=== PATIENT | male | born 1955 | race Caucasian/White ===

== ENCOUNTER 2018-05-07 14:53 | Inpatient (IN) | payer BC ==
[~2018-05-07] VITALS: Ht 193 cm; Wt 88.0 kg
[2018-05-07 14:56] VITALS: BP 124/75; PULSE 151; TEMP 97.4; O2SAT 98
--- NOTE | 2018-05-07 15:12 | PD ---
HPI Chief Complaint: Cardiac Complaint Time Seen by Provider: 15:01 Travel History International Travel<30 days: No Contact w/Intl Traveler<30days: No Traveled to known affect area: No History of Present Illness HPI 62 y/o male presents with short of breath and feeling tired. He denies prior history of atrial fibrillation. He denies any other concurrent complaints. He states his symptoms started yesterday. Quality is weak. Severity is all over. He states he feels worse when he moves around. Duration is one day. [facility] Past Medical History Hypertension: Yes ?: Not Past Surgical History Surgical History: No Previous Surgery Social History Alcohol Use: Yes (HEAVY DRINKER DAILY) Tobacco Use: No Substance Use: No Allergies-Medications (Allergen,Severity, Reaction): Coded Allergies: No Known Allergies (Unverified , 05/07/18) Reported Meds & Prescriptions Reported Meds & Active Scripts Active Reported Hydrochlorothiazide 25 Mg Tab 25 Mg PO DAILY Acyclovir 200 Mg Cap 250 Mg PO BID Review of Systems Except as stated in HPI: all other systems reviewed are Neg Physical Exam Narrative GENERAL: 62 y/o male in no apparent distress SKIN: Focused skin assessment warm/dry. HEAD: Atraumatic. Normocephalic. EYES: Pupils equal and round. No scleral icterus. No injection or drainage. ENT: No nasal bleeding or discharge. Mucous membranes pink and moist. NECK: Trachea midline. No JVD. CARDIOVASCULAR: irregular rate and rhythm. No murmur appreciated. RESPIRATORY: No accessory muscle use. Clear to auscultation. Breath sounds equal bilaterally. GASTROINTESTINAL: Abdomen soft, non-tender, nondistended. MUSCULOSKELETAL: No obvious deformities. No clubbing. No cyanosis. NEUROLOGICAL: Awake and alert. No obvious cranial nerve deficits. Motor grossly within normal limits. Normal speech. PSYCHIATRIC: Appropriate mood and affect; insight and judgment normal. Data Data Last Documented VS Vital Signs Date Time Temp Pulse Resp B/P (MAP) Pulse Ox O2 Delivery O2 Flow Rate FiO2 05/07/18 16:20 89 20 112/62 (79) 99 Nasal Cannula 2.00 05/07/18 14:56 97.4 Orders Orders Magnesium (Mg) (05/07/18 15:05) Phosphorus (Po4) (05/07/18 15:05) Complete Blood Count With Diff (05/07/18 15:05) Comprehensive Metabolic Panel (05/07/18 15:05) Ckmb (Isoenzyme) Profile (05/07/18 15:05) Troponin I (05/07/18 15:05) Act Partial Throm Time (Ptt) (05/07/18 15:05) Prothrombin Time / Inr (Pt) (05/07/18 15:05) Chest, Single Ap (05/07/18 ) Electrocardiogram (05/07/18 ) Iv Access Insert/Monitor (05/07/18 15:05) Ecg Monitoring (05/07/18 15:05) Oximetry (05/07/18 15:05) B-Type Natriuretic Peptide (05/07/18 15:05) Esmolol Drip Inj Premix (Brevibloc Drip (05/07/18 15:15) Electrocardiogram (05/07/18 13:54) Admit Order (Ed Use Only) (05/07/18 17:04) Labs Laboratory Tests Test 05/07/18 15:16 White Blood Count 8.1 TH/MM3 Red Blood Count 4.64 MIL/MM3 Hemoglobin 16.3 GM/DL Hematocrit 45.6 % Mean Corpuscular Volume 98.2 FL Mean Corpuscular Hemoglobin 35.1 PG Mean Corpuscular Hemoglobin Concent 35.7 % Red Cell Distribution Width 14.0 % Platelet Count 165 TH/MM3 Mean Platelet Volume 7.7 FL Neutrophils (%) (Auto) 72.0 % Lymphocytes (%) (Auto) 15.5 % Monocytes (%) (Auto) 11.4 % Eosinophils (%) (Auto) 0.7 % Basophils (%) (Auto) 0.4 % Neutrophils # (Auto) 5.8 TH/MM3 Lymphocytes # (Auto) 1.2 TH/MM3 Monocytes # (Auto) 0.9 TH/MM3 Eosinophils # (Auto) 0.1 TH/MM3 Basophils # (Auto) 0.0 TH/MM3 CBC Comment DIFF FINAL Differential Comment Prothrombin Time 10.0 SEC Prothromb Time International Ratio 1.0 RATIO Activated Partial Thromboplast Time 27.5 SEC Blood Urea Nitrogen 16 MG/DL Creatinine 1.09 MG/DL Random Glucose 120 MG/DL Total Protein 7.6 GM/DL Albumin 4.5 GM/DL Calcium Level 9.1 MG/DL Phosphorus Level 2.8 MG/DL Magnesium Level 2.1 MG/DL Alkaline Phosphatase 47 U/L Aspartate Amino Transf (AST/SGOT) 18 U/L Alanine Aminotransferase (ALT/SGPT) 35 U/L Total Bilirubin 1.3 MG/DL Sodium Level 137 MEQ/L Potassium Level 3.4 MEQ/L Chloride Level 100 MEQ/L Carbon Dioxide Level 26.2 MEQ/L Anion Gap 11 MEQ/L Estimat Glomerular Filtration Rate 69 ML/MIN Total Creatine Kinase 70 U/L Troponin I LESS THAN 0.02 NG/ML MDM Medical Decision Making Medical Screen Exam Complete: Yes Emergency Medical Condition: Yes Medical Record Reviewed: Yes (pmh confirmed) Interpretation(s) CBC & BMP Diagram 05/07/18 15:16 Total Protein 7.6, Albumin 4.5, Calcium Level 9.1, Phosphorus Level 2.8, Magnesium Level 2.1, Alkaline Phosphatase 47, Aspartate Amino Transf (AST/SGOT) 18, Alanine Aminotransferase (ALT/SGPT) 35, Total Bilirubin 1.3 H Last 24 hours Impressions Chest X-Ray 05/07/18 0000 Signed Impressions: CONCLUSION: 1. No focal infiltrate or pulmonary vascular congestion. 2. Elevation of the right hemidiaphragm. Differential Diagnosis A. fib with RVR, SVT, anemia, renal failure, electrolyte abnormality Narrative Course We will check blood work, chest x-ray and placed on esmolol drip and reevaluate. 1515 patient now in sinus rhythm, will turn off esmolol and admit for further care Critical Care Narrative Aggregate critical care time was 31 minutes. Time to perform other separately billable procedures was not included in the critical care time. My time did not include minutes spent treating any other patients simultaneously or on activities that did not directly contribute to the patient's treatment. The services I provided to this patient were to treat and/or prevent clinically significant deterioration that could result in: Worsening tachycardia, hypotension, I provided critical care services requiring my management, as noted below: Chart data review, documentation time, medication orders and management, vital sign assessments/reviewing monitor data, ordering and reviewing lab tests, ordering and interpreting/reviewing x-rays and diagnostic studies, care of the patient and discussion of the patient with the admitting physicians. Physician Communication Physician Communication dr grullon agrees to admit Diagnosis Primary Impression: New onset a-fib Admitting Information Admitting Physician Requests: Admit Stacy Deutsch MD May 07, 2018 15:12
[2018-05-07] MEDS ORDERED: ESMOLOL DRIP INJ PREMIX 250 ML IV PRN (15:15)
[2018-05-07 15:34] LABS: AUTOMATED NEUTROPHIL # 5.8 TH/MM3 (1.8-7.7); BASOPHIL % 0.4 % (0.0-2.0); EOSINOPHIL # 0.1 TH/MM3 (0-0.4); EOSINOPHIL % 0.7 % (0.0-4.0); HEMATOCRIT 45.6 % (39.0-51.0); HEMOGLOBIN 16.3 GM/DL (13.0-17.0); LYMPH % 15.5 % (9.0-44.0); LYMPHOCYTE # 1.2 TH/MM3 (1.0-4.8); MEAN CELL VOLUME 98.2 FL (80.0-100.0); MEAN CORPUSCULAR HEMOGLOBIN 35.1 PG (27.0-34.0); MEAN CORPUSCULAR HGB CONC 35.7 % (32.0-36.0); MEAN PLATELET VOLUME 7.7 FL (7.0-11.0); MONO % 11.4 % (0.0-8.0); MONOCYTE # 0.9 TH/MM3 (0-0.9); PLATELET COUNT 165 TH/MM3 (150-450); RED BLOOD COUNT 4.64 MIL/MM3 (4.50-5.90); WHITE BLOOD COUNT 8.1 TH/MM3 (4.0-11.0)
[2018-05-07 15:55] VITALS: BP 110/81; PULSE 129; RESP 15; O2SAT 91
[2018-05-07 15:58] LABS: ALBUMIN 4.5 GM/DL (3.4-5.0); ALT (GPT) 35 U/L (12-78); AST (GOT) 18 U/L (15-37); BICARBONATE 26.2 MEQ/L (21.0-32.0); BLOOD UREA NITROGEN 16 MG/DL (7-18); CALCIUM 9.1 MG/DL (8.5-10.1); CHLORIDE 100 MEQ/L (98-107); CREATININE 1.09 MG/DL (0.60-1.30); GLOMERULAR FILTRATION RATE 69 ML/MIN (>89); GLUCOSE,RANDOM 120 MG/DL (74-106); MAGNESIUM 2.1 MG/DL (1.5-2.5); PHOSPHORUS 2.8 MG/DL (2.5-4.9); SODIUM (NA) 137 MEQ/L (136-145)
[2018-05-07] MEDS ORDERED: HYDR25TA5 PO (15:58)
[2018-05-07] MEDS ORDERED: ACYC200C66 PO (15:58)
[2018-05-07 16:02] LABS: ALKALINE PHOSPHATASE 47 U/L (45-117); TOTAL BILIRUBIN ADULT 1.3 MG/DL (0.2-1.0); TOTAL PROTEIN 7.6 GM/DL (6.4-8.2); TROPONIN I LESS THAN 0.02 NG/ML (0.02-0.05)
--- NOTE | 2018-05-07 16:07 | RADRPT ---
EXAM DATE: 05/07/2018 3:59 PM EDT AGE/SEX: 62 years / Male INDICATIONS: Short of breath. CLINICAL DATA: This is the patient's initial encounter. Patient reports that signs and symptoms have been present for 1 day and indicates a pain score of 1/10. MEDICAL/SURGICAL HISTORY: None. None. COMPARISON: No prior exams available for comparison. FINDINGS: There is elevation of the right hemidiaphragm. The heart is stable. The pulmonary vascular pattern is normal. The lungs are clear. Degenerative changes are noted throughout the thoracic spine. CONCLUSION: 1. No focal infiltrate or pulmonary vascular congestion. 2. Elevation of the right hemidiaphragm. Electronically signed by: Nelson Caal MD 05/07/2018 4:04 PM EDT
[2018-05-07 16:20] VITALS: BP 112/62; PULSE 89; RESP 20; O2SAT 99
[2018-05-07] MEDS ORDERED: POTASSIUM CHLORIDE 10 MEQ CONTROLLED RELEASE TAB PO ONE (17:30)
[2018-05-07] MEDS ORDERED: VALS1TAB70 PO (17:33)
--- NOTE | 2018-05-07 18:12 | HHI.HP ---
[facility] Service [facility] Primary Care Physician Alex Rosenberg MD Admission Diagnosis afib with rvr Diagnoses: (1) New onset a-fib Diagnosis: Principal (2) Alcohol dependence Diagnosis: Principal (3) Hypokalemia Diagnosis: Principal Chief Complaint: palpitations, lightheaded ness- new onset a fib Travel History International Travel<30 Days: No Contact w/Intl Traveler <30 Da: No Traveled to Known Affected Are: No History of Present Illness Patient is a 62-year-old male with known history of hypertension on valsartan 320 mg daily, hydrochlorothiazide 25 mg daily who woke up around 10 AM this morning went to work, patient works in the [employer] in [employer] and suddenly felt lightheaded and short of breath with palpitations and sweating. Patient denies any chest pains. Persistence prompted consult to ER where on evaluation was noted to be in rapid A. fib. Patient was started on esmolol drip and converted to sinus rhythm. Patient denies any fever chills cough denies any recent travel. Very active lifestyle. Patient states both parents have history of heart disease. Mother has history of atrial fibrillation. Patient with history of herpes infection on suppression therapy with Acyclovir twice a day. Patient denies any paroxysmal nocturnal dyspnea orthopnea or leg swelling. On further questioning patient states that this happened to him about 5 years ago and was then sent to [facility] where he followed every 3 years and was discharged. Patient is on no anticoagulation. When asked about this patient at one point was told that he might need Coumadin but patient is reluctant. Review of Systems Constitutional: DENIES: Fever, Weight loss, Chills, Change in appetite Eyes: DENIES: Blurred vision, Double Vision Ears, nose, mouth, throat: DENIES: Tinnitus, Ear Pain, Epistaxis, Odynophagia Respiratory: DENIES: Cough, Hemoptysis, Sputum production, Shortness of breath Cardiovascular: DENIES: Chest pain, Palpitations, Dyspnea on Exertion, Lower Extremity Edema, Orthopnea Gastrointestinal: DENIES: Black stools, Bloody stools, Difficulty Swallowing, Anorexia Genitourinary: DENIES: Urgency, Hematuria, Penile Discharge Musculoskeletal: DENIES: Joint pain, Stiffness Integumentary: DENIES: Pruritus Hematologic/lymphatic: DENIES: Bruising Immunologic/allergic: DENIES: Urticaria Neurologic: DENIES: Headache, Speech Problems, Tremor Psychiatric: DENIES: Suicidal Ideation, Homicidal Ideation Past Family Social History Past Medical History Hypertension On chronic herpes infection suppression therapy Past Surgical History No major surgeries Reported Medications Hydrochlorothiazide 25 mg daily Valsartan 320 mg daily Famciclovir 200 mg twice a day Allergies: Coded Allergies: No Known Allergies (Unverified , 05/07/18) Family History Both parents have heart disease Mother has history of atrial fibrillation Social History Denies any smoking or IV drug use. Admits to drinking alcohol a daily basis for at least shots of whiskey every night for bottle of wine daily Physical Exam Vital Signs Vital Signs Date Time Temp Pulse Resp B/P (MAP) Pulse Ox O2 Delivery O2 Flow Rate FiO2 05/07/18 16:20 89 20 112/62 (79) 99 Nasal Cannula 2.00 05/07/18 15:56 114 110/81 05/07/18 15:55 129 15 110/81 (91) 91 Nasal Cannula 2.00 05/07/18 15:43 138 126/66 05/07/18 15:26 158 120/71 05/07/18 14:56 97.4 151 124/75 (91) 98 Physical Exam GENERAL: This is a well-nourished, well-developed patient, in no apparent distress. SKIN: No rashes, ecchymoses or lesions. Cool and dry. HEAD: Atraumatic. Normocephalic. No temporal or scalp tenderness. EYES: Pupils equal round and reactive. Extraocular motions intact. No scleral icterus. No injection or drainage. ENT: Nose without bleeding, purulent drainage or septal hematoma. Throat without erythema, tonsillar hypertrophy or exudate. Uvula midline. Airway patent. NECK: Trachea midline. No JVD or lymphadenopathy. Supple, nontender, no meningeal signs. CARDIOVASCULAR: Regular rate and rhythm without murmurs, gallops, or rubs. RESPIRATORY: Clear to auscultation. Breath sounds equal bilaterally. No wheezes , rales, or rhonchi. GASTROINTESTINAL: Abdomen soft, non-tender, nondistended. No hepato-splenomegaly , or palpable masses. No guarding. MUSCULOSKELETAL: Extremities without clubbing, cyanosis, or edema. No joint tenderness, effusion, or edema noted. No calf tenderness. Negative Homans sign bilaterally. NEUROLOGICAL: Awake and alert. Cranial nerves II through XII intact. Motor and sensory grossly within normal limits. Five out of 5 muscle strength in all muscle groups. Normal speech. Laboratory Laboratory Tests Test 05/07/18 15:16 White Blood Count 8.1 Red Blood Count 4.64 Hemoglobin 16.3 Hematocrit 45.6 Mean Corpuscular Volume 98.2 Mean Corpuscular Hemoglobin 35.1 Mean Corpuscular Hemoglobin Concent 35.7 Red Cell Distribution Width 14.0 Platelet Count 165 Mean Platelet Volume 7.7 Neutrophils (%) (Auto) 72.0 Lymphocytes (%) (Auto) 15.5 Monocytes (%) (Auto) 11.4 Eosinophils (%) (Auto) 0.7 Basophils (%) (Auto) 0.4 Neutrophils # (Auto) 5.8 Lymphocytes # (Auto) 1.2 Monocytes # (Auto) 0.9 Eosinophils # (Auto) 0.1 Basophils # (Auto) 0.0 CBC Comment DIFF FINAL Differential Comment Prothrombin Time 10.0 Prothromb Time International Ratio 1.0 Activated Partial Thromboplast Time 27.5 Blood Urea Nitrogen 16 Creatinine 1.09 Random Glucose 120 Total Protein 7.6 Albumin 4.5 Calcium Level 9.1 Phosphorus Level 2.8 Magnesium Level 2.1 Alkaline Phosphatase 47 Aspartate Amino Transf (AST/SGOT) 18 Alanine Aminotransferase (ALT/SGPT) 35 Total Bilirubin 1.3 Sodium Level 137 Potassium Level 3.4 Chloride Level 100 Carbon Dioxide Level 26.2 Anion Gap 11 Estimat Glomerular Filtration Rate 69 Total Creatine Kinase 70 Troponin I LESS THAN 0.02 Result Diagram: 05/07/18 1516 05/07/18 1516 Imaging Last Impressions Chest X-Ray 05/07/18 0000 Signed Impressions: CONCLUSION: 1. No focal infiltrate or pulmonary vascular congestion. 2. Elevation of the right hemidiaphragm. Caprini VTE Risk Assessment Caprini Risk Assessment Model Point Value = 1 Point Value = 2 Point Value = 3 Point Value = 5 Age 41-60 Minor surgery BMI > 25 kg/m2 Swollen legs Varicose veins or History of unexplained or recurrent spontaneous Oral contraceptives or hormone replacement Sepsis (< 1 month) Serious lung disease, including pneumonia (< 1 month) Abnormal pulmonary function Acute myocardial infarction Congestive heart failure (< 1 month) History of inflammatory bowel disease Medical patient at bed rest Age 61-74 Arthroscopic surgery Major open surgery (> 45 min) Laparoscopic surgery (> 45 min) Malignancy Confined to bed (> 72 hours) Immobilizing plaster cast Central venous access Age >= 75 History of VTE Family history of VTE Factor V Leiden Prothrombin [id number] Lupus anticoagulant Anticardiolipin antibodies Elevated serum homocysteine Heparin-induced thrombocytopenia Other congenital or acquired thrombophilia Stroke (< 1 month) Elective arthroplasty Hip, pelvis, or leg fracture Acute spinal cord injury (< 1 month) Prophylaxis Regimen Total Risk Factor Score Risk Level Prophylaxis Regimen 0-1 Low Early ambulation 2 Moderate Order ONE of the following: *Sequential Compression Device (SCD) *Heparin 5000 units SQ BID 3-4 Higher Order ONE of the following medications: *Heparin 5000 units SQ TID *Enoxaparin/Lovenox 40 mg SQ daily (WT < 150 kg, CrCl > 30 mL/min) *Enoxaparin/Lovenox 30 mg SQ daily (WT < 150 kg, CrCl > 10-29 mL/min) *Enoxaparin/Lovenox 30 mg SQ BID (WT < 150 kg, CrCl > 30 mL/min) AND/OR *Sequential Compression Device (SCD) 5 or more Highest Order ONE of the following medications: *Heparin 5000 units SQ TID (Preferred with Epidurals) *Enoxaparin/Lovenox 40 mg SQ daily (WT < 150 kg, CrCl > 30 mL/min) *Enoxaparin/Lovenox 30 mg SQ daily (WT < 150 kg, CrCl > 10-29 mL/min) *Enoxaparin/Lovenox 30 mg SQ BID (WT < 150 kg, CrCl > 30 mL/min) AND *Sequential Compression Device (SCD) Assessment and Plan Assessment and Plan 62-year-old male presenting with lightheadedness palpitations sweating and on admission was found to be in Atrial fibrillation new onset in RVR. -Chads score 2- now in SR History of hypertension patient converted to sinus with esmolol drip now off it. Will start patient on po BB- Toprol XL 12.5 mg daily. Start aspirin. Discussed about newer oral anticoagulants patient is appears reluctant at this time- heard about "Coumadin". Will get cardiology consult for recommendation Get an echo. Get TSH Counseled on alcohol cessation. Continue on Valsartan- decrease dose to 160 mg with addition of BB (home dose was 320 mg daily) Hypokalemia. We will give p.o. potassium 30 meq po Recheck BMP in a.m. Chronic alcohol use. Patient admits to drinking heavily on a daily basis. Will place patient on CIWA protocol. History of chronic herpes infection on suppression therapy. continue Acyclovir Lovenox - DVT prophylaxis dose Physician Certification 2 Midnight Certification Type: Admission for Inpatient Services Order for Inpatient Services The services are ordered in accordance with Medicare regulations or non- Medicare payer requirements, as applicable. In the case of services not specified as inpatient-only, they are appropriately provided as inpatient services in accordance with the 2-midnight benchmark. Estimated LOS (days): 3 days is the estimated time the patient will need to remain in the hospital, assuming treatment plan goals are met and no additional complications. Post-Hospital Plan: Home Martha Moeller MD May 07, 2018 18:12
[2018-05-07] MEDS ORDERED: FLUMAZENIL 0.5 MG/5 ML VIAL IV PUSH PRN (18:15)
[2018-05-07] MEDS ORDERED: LORazepam 2 MG/ML VIAL IV PUSH PRN ×4 (18:15)
[2018-05-07] MEDS ORDERED: LORazepam 2 MG TAB PO PRN (18:15)
[2018-05-07] MEDS ORDERED: LORazepam 1 MG TAB PO PRN (18:15)
[2018-05-07] MEDS ORDERED: PILL SPLITTER OTHER PRN (19:00)
[2018-05-07 19:08] VITALS: BP 129/60; PULSE 92; RESP 20; TEMP 98.3; O2SAT 97
[2018-05-07] MEDS: ASPIRIN EC 325 MG TABEC PO SCH (19:13)
[2018-05-07] MEDS: METOPROLOL SUCCINATE 25 MG EXTENDED RELEASE TAB PO SCH (19:14)
[2018-05-07] MEDS: ACYCLOVIR 200 MG CAP PO SCH (19:54)
[2018-05-07] MEDS ORDERED: ENOXAPARIN SODIUM 30 MG/0.3 ML SYRINGE SQ SCH (20:00)
[2018-05-07] MEDS ORDERED: ACYCLOVIR 200 MG CAP PO SCH (21:00)
[2018-05-07 22:59] VITALS: PULSE 76
[2018-05-07 23:00] VITALS: BP 131/86; PULSE 71; RESP 20; TEMP 98.1; O2SAT 96
[2018-05-08] VITALS (18 sets, daily range): BP systolic 121–144; BP diastolic 78–80; PULSE 58–88; RESP 18–22; TEMP 97.4–98.1; O2SAT 97–98
[2018-05-08] MEDS ORDERED: MULTIVITAMINS/MINERALS THERAPEUTIC TAB PO SCH (09:00)
[2018-05-08] MEDS: ACYCLOVIR 200 MG CAP PO SCH (09:00)
[2018-05-08] MEDS ORDERED: VALSARTAN 160 MG TAB PO SCH (09:00)
[2018-05-08] MEDS ORDERED: FOLIC ACID 1 MG TAB PO SCH (09:00)
[2018-05-08] MEDS ORDERED: THIAMINE HCL 100 MG TAB PO SCH (09:00)
[2018-05-08] MEDS: ASPIRIN EC 325 MG TABEC PO SCH (09:11)
[2018-05-08] MEDS: METOPROLOL SUCCINATE 25 MG EXTENDED RELEASE TAB PO SCH (09:12)
[2018-05-08 11:43] LABS: BICARBONATE 28.4 MEQ/L (21.0-32.0); CALCIUM 8.9 MG/DL (8.5-10.1); CREATININE 0.9 MG/DL (0.60-1.30)
[2018-05-08] MEDS ORDERED: ASPI81 CHEW (12:49)
[2018-05-08] MEDS ORDERED: METO1TAB42 PO (12:49)
--- NOTE | 2018-05-08 12:53 | MB ---
cc: Ken Bowen DO DATE: 05/08/2018 REASON FOR CONSULTATION: New onset atrial fibrillation. HISTORY OF PRESENT ILLNESS: Christian Romero is a pleasant 62-year-old male who presented to [facility] Emergency Room on 05/07/2018 due to lightheadedness, palpitations and diaphoresis. He states that he woke up in the morning and was not feeling well, somewhat lightheaded, as well as palpitations. He decided to go to work and while at work he started getting diaphoretic and just felt that he needed to come into the emergency room. While at work, he started getting diaphoretic and so he attempted to call his primary care physician, but his primary physician was off and so he was told to come to the Emergency Room. On arrival, he was found to be in atrial fibrillation with rapid ventricular response and was started on an esmolol drip, but then converted to sinus rhythm. Since that time, he has been in sinus rhythm. In talking to him, he states that he has had no chest pain. He no longer has palpitations or diaphoresis. Overall, he feels well, has been up and moving and walking. 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 They wanted to do a colonoscopy and so after taking the prep, he was getting ready for his colonoscopy at the hospital and he was found to have tachycardia. He was never told that this was atrial fibrillation and apparently they just had him drink some water feeling that he got dehydrated and his heart rate returned to normal, so this may have been sinus tachycardia. He did bring up about Coumadin as both his parents had atrial fibrillation, but otherwise anticoagulation was never mentioned to him, so I do not believe that this was probably atrial fibrillation at that time, although it is tough to tell. This episode, he said, happened somewhere around 5-8 years ago. PAST MEDICAL HISTORY: 1. Hypertension. 2. Chronic herpes infection. PAST SURGICAL HISTORY: Denies. ALLERGIES: NO KNOWN DRUG ALLERGIES. MEDICATIONS: 1. Acyclovir 250 mg b.i.d. 2. Valsartan 320 mg daily. 3. Hydrochlorothiazide 25 mg daily. FAMILY HISTORY: Both parents had heart disease as well as atrial fibrillation. SOCIAL HISTORY: The patient denies tobacco or drug abuse. He admits to drinking on a daily basis usually a bottle of wine and a couple shots of whiskey. He states that he does not enjoy the alcohol, but feels he has nothing else to do and so usually has a drink or 2. REVIEW OF SYSTEMS: Fourteen systems are reviewed including osteopathic. Pertinent positives and negatives as above, otherwise negative. PHYSICAL EXAMINATION: VITAL SIGNS: Temperature 97.4, heart rate 88, blood pressure 144/78, respirations 20, pulse oximetry 98% on room air. GENERAL: The patient appears well in no acute distress. Alert, awake and oriented x 3. HEENT: Extraocular muscles intact. Mucous membranes moist. NECK: Supple. No JVD at 45 degrees. No carotid bruits heard bilaterally. Carotid upstroke is brisk in nature. HEART: Regular rate and rhythm. Positive first and second heart sounds with no noted murmurs, gallops or rubs. LUNGS: Clear to auscultation bilaterally. No wheezes, rales or rhonchi. ABDOMEN: Soft, nontender, nondistended. No organomegaly noted. EXTREMITIES: Show no clubbing, cyanosis or edema. Femoral and distal pulses intact bilaterally. NEUROLOGIC: No focal deficits. SKIN: Warm, dry and intact. OSTEOPATHIC: No kyphoscoliosis, lordosis or paraspinal tender points. LABORATORY DATA: Hemoglobin 16.3, hematocrit 45.6, platelets 165. Potassium 3.6, BUN 16, creatinine 0.9. Troponin less than 0.02. BNP 34. TSH 1.64. Electrocardiogram (05/07/2018 at 1354): Atrial fibrillation with rapid ventricular response, nonspecific ST-T wave changes. Electrocardiogram (05/07/2018 at 1517): Sinus rhythm with no acute ST-T wave changes. IMPRESSIONS: 1. New onset atrial fibrillation with rapid ventricular response, since it is converted to normal sinus rhythm, CHADS-VASc score equals 1. 2. History of hypertension. 3. Chronic alcohol use. 4. Previous tachyarrhythmia a number of years ago, which possibly could have been sinus tachycardia due to dehydration. RECOMMENDATIONS: 1. Mr. Romero presented with atrial fibrillation and has since converted to sinus rhythm. 2. We will plan on placing him on low-dose metoprolol tartrate to help try to keep him out of atrial fibrillation, but also if he does go into atrial fibrillation, this will help to control his heart rate. 3. He has a CHADS-VASc score of 1 (hypertension) and so he will be placed on aspirin 81 mg daily for anticoagulant. 4. We will check a 2-D echo and if no complications, he will be discharged home later today. 5. He will continue on his current medications for blood pressure therapy. 6. We talked about his alcohol use as this may potentiate his atrial fibrillation and he states that he does it more out of boredom and so he has no problem decreasing this. 7. He does have a slightly larger neck, but does not have daytime somnolence or snoring, but consideration of possible outpatient obstructive sleep apnea would be reasonable as a possible potentiating factor for his atrial fibrillation. 8. He will followup in the office with me or up at [place]. Thank you for allowing me to see Christian Romero. If there are any questions, please do not hesitate to call. Ken Bowen, VGP/DL , 12:06 PM , 12:52 PM
--- NOTE | 2018-05-08 12:53 | HHI.DS ---
Discharge Summary Admission Date May 07, 2018 at 17:05 Discharge Date: May 08, 2018 Admitting Diagnosis afib with rvr (1) New onset a-fib ICD Code: I48.91 - Unspecified atrial fibrillation Diagnosis: Principal Status: Acute (2) Alcohol dependence ICD Code: F10.20 - Alcohol dependence, uncomplicated Diagnosis: Principal (3) Hypokalemia ICD Code: E87.6 - Hypokalemia Diagnosis: Principal Procedures Echo Brief History - From Admission Patient is a 62-year-old male with known history of hypertension on valsartan 320 mg daily, hydrochlorothiazide 25 mg daily who woke up around 10 AM this morning went to work, patient works in the [employer] in [facility] and suddenly felt lightheaded and short of breath with palpitations and sweating. Patient denies any chest pains. Persistence prompted consult to ER where on evaluation was noted to be in rapid A. fib. Patient was started on esmolol drip and converted to sinus rhythm. Patient denies any fever chills cough denies any recent travel. Very active lifestyle. Patient states both parents have history of heart disease. Mother has history of atrial fibrillation. Patient with history of herpes infection on suppression therapy with Acyclovir twice a day. Patient denies any paroxysmal nocturnal dyspnea orthopnea or leg swelling. On further questioning patient states that this happened to him about 5 years ago and was then sent to [facility] where he followed every 3 years and was discharged. Patient is on no anticoagulation. When asked about this patient at one point was told that he might need Coumadin but patient is reluctant. CBC/BMP: 05/07/18 1516 05/08/18 1113 Significant Findings Laboratory Tests Test 05/07/18 15:16 05/08/18 11:13 Mean Corpuscular Hemoglobin 35.1 PG (27.0-34.0) Neutrophils (%) (Auto) 72.0 % (16.0-70.0) Monocytes (%) (Auto) 11.4 % (0.0-8.0) Random Glucose 120 MG/DL (74-106) 117 MG/DL (74-106) Total Bilirubin 1.3 MG/DL (0.2-1.0) Potassium Level 3.4 MEQ/L (3.5-5.1) Estimat Glomerular Filtration Rate 69 ML/MIN (>89) 86 ML/MIN (>89) Troponin I LESS THAN 0.02 NG/ML Hospital Course Mr. Romero is a 62-year-old male. He was admitted secondary to A. fib RVR. He may have had a previous cardiac arrhythmia between 5 and 10 years ago after having a GI procedure. He cannot recall doing anything specific yesterday but had an onset of tachycardia this morning. In the ER he was found in A. fib RVR and responded very quickly to metoprolol. She has been in sinus rhythm since. Echocardiogram pending. Cardiology following. Patient has a [id number] Score of 1. He is rate controlled and in sinus rhythm on metoprolol. Medically clear and stable for discharge on metoprolol and aspirin today, after cleared by cardiology. Pt Condition on Discharge: Stable Discharge Disposition: Discharge Home Discharge Time: <= 30 minutes Discharge Instructions DIET: Follow Instructions for: Heart Healthy Diet Additional Diet Instructions: Discontinue or limit alcohol intake Activities you can perform: Regular-No Restrictions Follow up Referrals: PCP Follow-up - 2 Weeks New Medications: Metoprolol Succinate ER 24 HR (Metoprolol Succinate ER 24 HR) 25 Mg Tab 12.5 MG PO DAILY for Heart Rate Control, #30 TAB 0 Refills Aspirin (Tgt Aspirin) 81 Mg Chw 81 MG CHEW DAILY for Blood Clot Prevention, #30 EA Continued Medications: Acyclovir (Acyclovir) 200 Mg Cap 250 MG PO BID for Mgmt Viral Infection, CAP 0 Refills Hydrochlorothiazide (Hydrochlorothiazide) 25 Mg Tab 25 MG PO DAILY, #30 TAB 0 Refills Valsartan (Valsartan) 320 Mg Tab 320 MG PO DAILY, #30 TAB 0 Refills Ishan Weinstein MD May 08, 2018 12:53
--- NOTE | 2018-05-08 14:44 | ECHRPT ---
Indication: AFIB CONCLUSIONS The left ventricular systolic function is normal with an estimated ejection fraction in the range of 60-65%. Mild concentric left ventricular hypertrophy. Doppler parameters are consistent with impaired left ventricular relaxtion (grade 1 diastolic dysfun ction). There is trace tricuspid valve regurgitation. BP: / HR: Rhythm: MEASUREMENTS (Male / Female) Normal Values Technical Quality: 2D ECHO LV Diastolic Diameter PLAX 5.1 cm 4.2 - 5.9 / 3.9 - 5.3 cm LV Systolic Diameter PLAX 3.6 cm IVS Diastolic Thickness 1.3 cm 0.6 - 1.0 / 0.6 - 0.9 cm LVPW Diastolic Thickness 1.3 cm 0.6 - 1.0 / 0.6 - 0.9 cm LV Relative Wall Thickness 0.5 RV Internal Dim ED PLAX 2.3 cm M-MODE Aortic Root Diameter MM 3.5 cm LA Systolic Diameter MM 3.6 cm LA Ao Ratio MM 1.0 AV Cusp Separation MM 2.2 cm DOPPLER Mitral E Point Velocity 66.8 cm/s Mitral A Point Velocity 93.6 cm/s Mitral E to A Ratio 0.7 LV E' Lateral Velocity 9.1 cm/s Mitral E to LV E' Lateral Ratio 7.4 TR Peak Velocity 241.0 cm/s TR Peak Gradient 23.2 mmHg Right Atrial Pressure 10.0 mmHg Pulmonary Artery Systolic Pressu 33.2 mmHg Right Ventricular Systolic Press 33.2 mmHg FINDINGS LEFT VENTRICLE Mild concentric left ventricular hypertrophy. Normal left ventricular size . The left ventricular systolic function is normal with an estimated ejection fraction in the range of 60-65%. Doppler parameters are consistent with impaired left ventricular relaxtion (grade 1 diastolic dysfun ction). RIGHT VENTRICLE Not well visualiaed LEFT ATRIUM The left atrial size is normal. RIGHT ATRIUM The right atrial size is normal. ATRIAL SEPTUM Normal atrial septal thickness AORTA The aortic root and proximal ascending aorta are not well visualized. MITRAL VALVE Structurally normal mitral valve. Trace mitral valve regurgitation. No mitral valve stenosis. AORTIC VALVE Trileaflet aortic valve. No aortic valve stenosis or regurgitation. TRICUSPID VALVE The estimated pulmonary arterial pressure is 33.2 mmHg. There is trace tricuspid valve regurgitation. No tricuspid valve stenosis. PULMONARY VALVE No pulmonary valve regurgitation or stenosis. VESSELS The inferior vena cava was not well visualized. PERICARDIUM No pericardial effusion. Ken Bowen DO (Electronically Signed) Final Date:08 May 2018 14:43
--- NOTE | 2018-05-08 18:23 | EKG ---
Date Performed: 05/07/2018 Time Performed: 13:54:43 PTAGE: 62 years EKG: ATRIAL FIBRILLATION WITH RAPID VENTRICULAR RESPONSE MODERATE ST DEPRESSION ABNORMAL ECG no prior for comparison NO PREVIOUS TRACING DOCTOR: Jojo Tyler Interpretating Date/Time 05/08/2018 18:21:37
--- NOTE | 2018-05-08 18:24 | EKG ---
Date Performed: 05/07/2018 Time Performed: 15:17:27 PTAGE: 62 years EKG: Sinus rhythm NORMAL ECG when compared to prior EKG, patient now appears to be in sinus rythm. PREVIOUS TRACING :05/07/2018 @ 13.54 DOCTOR: Jojo Tyler Interpretating Date/Time 05/08/2018 18:22:55
[2018-05-09] MEDS ORDERED: ASPIRIN 81 MG CHEW TAB CHEW SCH (09:00)
== END 2018-05-08 15:34 | disposition home or self-care (01) | DRG 310 ==
LOC: NEPE 14:53 → NEDA 17:05 → NEDH 21:39 → HCIS 22:50
PROVIDERS: ADMIT Hospitalist; ATTEND Hospitalist
DX: I48.91 Unspecified atrial fibrillation (principal); I10 Essential (primary) hypertension; F10.20 Alcohol dependence, uncomplicated; E87.6 Hypokalemia; B00.9 Herpesviral infection, unspecified
CPT/HCPCS: 71045; 80048; 80053; 82550; 83735; 83880; 84100; 84443; 84484; 85025; 85610; 85730; 93005; 93306; J1650